=== PATIENT | female | born 1980 | race Caucasian/White ===

== ENCOUNTER → 2020-04-21 | Outpatient (CLI) | payer OTHER | LOC: M WHC 11:01 | PROVIDERS: ATTEND Obstetrics & Gynecology | DX: Z34.92 Encounter for supervision of normal pregnancy, unspecified, second trimester (principal); Z3A.20 20 weeks gestation of pregnancy; Z53.9 Procedure and treatment not carried out, unspecified reason ==

== ENCOUNTER → 2020-04-21 | Outpatient (CLI) | payer OTHER | LOC: M PLALAB 11:57 | PROVIDERS: ATTEND Obstetrics & Gynecology | DX: O09.512 Supervision of elderly primigravida, second trimester (principal); Z3A.00 Weeks of gestation of pregnancy not specified ==

== ENCOUNTER → 2020-04-22 | Outpatient (CLI) | payer OTHER ==
--- NOTE | 2020-04-22 18:48 | REP ---
INDICATION: PREG, ANATOMY COMPARISON: None. TECHNIQUE: Transabdominal obstetrical ultrasound with color Doppler evaluation. FINDINGS: Examination demonstrates a single live intrauterine in transverse presentation. motion is identified by technologist. Placenta is noted anterior and grade 0 without evidence for placenta previa or abruption. Amniotic fluid volume is normal. Cervix measures 4.0 cm in length and appears closed. Hypoechoic areas within the placenta likely represent small venous lakes. Gestational age by LMP 21 weeks 0 days with JOSE 09/02/2020. Gestational age by current measurements 20 weeks 6 days with JOSE 09/03/2020. FHR equals 147 beats per minute. Estimated weight 378 grams (35thpercentile). Anatomical assessment demonstrates normal structures including cranium, choroid plexus, cavum, cerebellum/posterior fossa, facial features, lungs, diaphragm, stomach, cord insertion/three-vessel cord, kidneys/bladder, spine, and extremities. IMPRESSION: 1. Single live intrauterine in transverse lie demonstrating appropriate estimated weight and growth. 2. Limited evaluation of the heart/ventricular outflow tracts may warrant re-evaluation and follow-up. 3. Presumed small placental venous lakes. <Electronically signed by Tito Antunez > 04/22/20 [id number]
== END ==
LOC: M RAD 10:05
PROVIDERS: ATTEND Obstetrics & Gynecology
DX: Z36.9 Encounter for antenatal screening, unspecified (principal); Z3A.20 20 weeks gestation of pregnancy

== ENCOUNTER → 2020-06-29 | Outpatient (REF) | payer OTHER | LOC: M PLALAB 08:54 | PROVIDERS: ATTEND Obstetrics & Gynecology | DX: Z3A.31 31 weeks gestation of pregnancy (principal); Z53.9 Procedure and treatment not carried out, unspecified reason ==

== ENCOUNTER → 2020-07-14 | Outpatient (REF) | payer OTHER ==
[~2020-07-14] MED LIST: MACR100C43 PO; PREN1CHW6 PO; ZOLO50TA PO
[2020-07-14 11:57] LABS: HEMATOCRIT 34.7 % (36.0-47.0); HEMOGLOBIN 11.2 g/dl (12.0-15.5); MEAN CORPUSCULAR HEMOGLOBIN 31.2 pg (27.0-33.0); MEAN CORPUSCULAR HGB CONC 32.3 g/dl (32.0-36.5); MEAN CORPUSCULAR VOLUME 96.7 fl (80.0-96.0); PLATELET COUNT, AUTOMATED 172 10^3/uL (150-450); RED BLOOD COUNT 3.59 10^6/uL (4.00-5.40); WHITE BLOOD COUNT 10.4 10^3/uL (4.0-10.0)
[2020-07-14 12:12] LABS: HEMOGLOBIN A1c 5.4 %
[2020-07-14 12:25] LABS: FREE T4 0.8 NG/DL (0.76-1.46); THYROID STIMULATING HORMONE 1.26 uIU/ML (0.358-3.740)
[2020-07-14 15:29] LABS: CHLAMYDIA DNA AMPLIFICATION NEGATIVE (NEGATIVE); GC DNA AMPLIFICATION NEGATIVE (NEGATIVE)
[2020-07-16 09:12] LABS: HIV 1&2 SCREEN CENTAUR NEGATIVE (NEGATIVE)
== END ==
LOC: M PLALAB 09:38
PROVIDERS: ATTEND Advanced Practice Midwife
DX: O09.523 Supervision of elderly multigravida, third trimester (principal); O34.211 Maternal care for low transverse scar from previous cesarean delivery; O24.419 Gestational diabetes mellitus in pregnancy, unspecified control; O99.343 Other mental disorders complicating pregnancy, third trimester; F32.9 Major depressive disorder, single episode, unspecified; Z3A.32 32 weeks gestation of pregnancy; Z79.899 Other long term (current) drug therapy

== ENCOUNTER → 2020-07-14 | Outpatient (CLI) | payer OTHER ==
--- NOTE | 2020-07-14 10:55 | REP ---
INDICATION: F/U ANATOMY COMPARISON: 04/22/2020 TECHNIQUE: Transabdominal obstetrical ultrasound with color Doppler evaluation. FINDINGS: Examination demonstrates a single live intrauterine in cephalic presentation. motion is identified by technologist. Placenta is noted anterior and grade 2 without evidence for placenta previa or abruption. Amniotic fluid volume is increased suggesting polyhydramnios. Cervix measures 4.8 cm in length and appears closed.. Gestational age by LMP and 1st U/S 32 weeks 6 days with JOSE 09/02/2020. Gestational age by current measurements 32 weeks 3 days with JOSE 09/05/2020. FHR equals 136 beats per minute. APRIL: 25.2 cm Umbilical artery SD ratio: 2.80 (1.80-3.78) Estimated weight 1949 grams (24thpercentile). Anatomical assessment demonstrates normal structures including lungs, four-chamber heart/ventricular outflow tracts. IMPRESSION: 1. Single live intrauterine in cephalic presentation demonstrating appropriate interval growth. 2. Polyhydramnios. 3. In conjunction with prior examination anatomical assessment is complete and normal. <Electronically signed by Tito Antunez > 07/14/20 [id number]
== END ==
LOC: M WHC 07:29
PROVIDERS: ATTEND Obstetrics & Gynecology
DX: Z36.89 Encounter for other specified antenatal screening (principal); Z3A.31 31 weeks gestation of pregnancy
CPT/HCPCS: 59025; 76816; 76820; 90471; 90715; G0463

== ENCOUNTER → 2020-08-04 | Outpatient (REF) | payer OTHER | LOC: M PLALAB 08:25 | PROVIDERS: ATTEND Obstetrics & Gynecology | DX: O99.343 Other mental disorders complicating pregnancy, third trimester (principal); F32.9 Major depressive disorder, single episode, unspecified; O34.211 Maternal care for low transverse scar from previous cesarean delivery; O09.523 Supervision of elderly multigravida, third trimester; Z3A.35 35 weeks gestation of pregnancy; Z79.899 Other long term (current) drug therapy | CPT/HCPCS: 59025; 87081; 87088; 87186; G0463 ==

== ENCOUNTER → 2020-08-04 | Outpatient (CLI) | payer OTHER ==
--- NOTE | 2020-08-04 10:20 | REP ---
INDICATION: GESTATIONAL DIABETES,GROWTH COMPARISON: 07/14/2020 TECHNIQUE: Transabdominal obstetrical ultrasound with color Doppler evaluation. FINDINGS: Examination demonstrates a single live intrauterine in cephalic presentation. motion is identified by technologist. Placenta is noted anterior and grade 2 without evidence for placenta previa or abruption. Amniotic fluid volume is upper normal raising the possibility of polyhydramnios. Cervix measures 3.2 cm in length and appears closed.. Gestational age by LMP and 1st U/S 35 weeks 6 days with JOSE 09/02/2020. Gestational age by current measurements 35 weeks 2 days with JOSE 09/06/2020. FHR equals 170 beats per minute. BPD: 9.0 cm at 36 weeks 2 days HC: 31.6 cm at 35 weeks 3 days AC: 31.7 cm at 35 weeks 5 days FL: 6.5 cm at 33 weeks 5 days HL: 6.1 cm at 35 weeks 2 days HC/AC: 1.00 Estimated weight 2615 grams (31stpercentile). APRIL: 24.3 cm (7.7-24.9) IMPRESSION: Single live intrauterine demonstrating appropriate interval growth. Amniotic fluid volume is borderline polyhydramnios. <Electronically signed by Tito Antunez > 08/04/20 [id number]
== END ==
LOC: M WHC 09:31
PROVIDERS: ATTEND Advanced Practice Midwife
DX: O24.419 Gestational diabetes mellitus in pregnancy, unspecified control (principal)

== ENCOUNTER → 2020-08-17 | Outpatient (CLI) | payer OTHER ==
[~2020-08-17] MED LIST changes: +COLA100C5 PO; +IBUP80TA PO; +PERC5TAB12 PO
--- NOTE | 2020-08-17 13:54 | REP ---
INDICATION: DECREASED MOVEMENT COMPARISON: 08/05/2019 TECHNIQUE: Transabdominal obstetrical ultrasound with color Doppler evaluation. FINDINGS: Examination demonstrates a single live intrauterine in cephalic presentation. motion is identified by technologist. Placenta is noted anterior and grade 1 without evidence for placenta previa or abruption. Amniotic fluid volume is normal. Nuchal cord noted. APRIL: 11.6 cm (7.4-24.1) Biophysical profile score: 8/8 Umbilical artery SD ratio: 2.02 (1.56-3.38) IMPRESSION: Single live advanced gestation in cephalic presentation. Biophysical profile score and amniotic fluid volume are normal. Evidence for nuchal cord. <Electronically signed by Tito Antunez > 08/17/20 [id number]
== END ==
LOC: M RAD 13:09
PROVIDERS: ATTEND Obstetrics & Gynecology
DX: O36.8123 Decreased fetal movements, second trimester, fetus 3 (principal); O09.523 Supervision of elderly multigravida, third trimester
CPT/HCPCS: 59025; 76815; 76819; 76820; G0463

== ENCOUNTER → 2020-08-20 | Outpatient (CLI) | payer OTHER ==
[~2020-08-20] MED LIST changes: -COLA100C5 PO; -IBUP80TA PO; -PERC5TAB12 PO
--- NOTE | 2020-08-20 14:20 | REP ---
INDICATION: GESTATIONAL DIABETES,GROWTH COMPARISON: 08/04/2020 TECHNIQUE: Transabdominal obstetrical ultrasound with color Doppler evaluation. FINDINGS: Examination demonstrates a single live intrauterine in cephalic presentation. motion is identified by technologist. Placenta is noted anterior and grade 2 without evidence for placenta previa or abruption. Amniotic fluid volume is normal. Gestational age by LMP and 1st U/S 30 weeks 1 day with JOSE 09/02/2020. Gestational age by current measurements 37 weeks 4 days with JOSE 09/06/2020. FHR equals 144 beats per minute. BPD: 9.3 cm at 37 weeks 4 days HC: 33.4 cm at 38 weeks 1 day AC: 34.7 cm at 30 weeks 4 days FL: 7.1 cm at 36 weeks 3 days HL: 6.5 cm at 37 weeks 3 days HC/AC: 0.96 Estimated weight 3344 grams (58thpercentile). APRIL: 13.6 cm Umbilical artery SD ratio: 2.61 (1.55-3.35) IMPRESSION: Single live advanced gestation in cephalic presentation demonstrating appropriate estimated weight/growth. <Electronically signed by Tito Antunez > 08/20/20 [id number]
== END ==
LOC: M WHC 13:23
PROVIDERS: ATTEND Advanced Practice Midwife
DX: O24.419 Gestational diabetes mellitus in pregnancy, unspecified control (principal)

== ENCOUNTER → 2020-08-22 | Outpatient (CLI) | payer BC, OTHER ==
[~2020-08-22] MED LIST changes: +COLA100C5 PO; +IBUP80TA PO; +PERC5TAB12 PO
== END ==
LOC: M LABSMTC 08:05
PROVIDERS: ATTEND Anesthesiology
DX: Z20.828 Contact with and (suspected) exposure to other viral communicable diseases (principal); Z11.59 Encounter for screening for other viral diseases

== ENCOUNTER 2020-08-27 06:58 | Inpatient (IN) | payer OTHER ==
[~2020-08-27] VITALS: Ht 167.6 cm; Wt 104.0 kg
[2020-08-27] VITALS (8 sets, daily range): BP systolic 107–127; BP diastolic 60–78
[~2020-08-27 06:58] MED LIST changes: -COLA100C5 PO; -IBUP80TA PO; -PERC5TAB12 PO
[2020-08-27] MEDS ORDERED: LACTATED RINGER'S 1000 ML IV STA (07:39)
[2020-08-27] MEDS ORDERED: FLUID PLACE HOLDER IV ONE (07:40)
[2020-08-27] MEDS ORDERED: LR 1,000 ML IV SCH ×2 (07:40→12:35)
[2020-08-27] MEDS ORDERED: GENTAMICIN IV ONE (07:40)
[2020-08-27] MEDS ORDERED: GENTAMICIN 160 MG in D5W 50 ML IV ONE (08:15)
[2020-08-27] MEDS ORDERED: BICITRA 30ML SOLN UDC PO ONE (08:30)
[2020-08-27] MEDS ORDERED: CLINDAMYCIN 900 MG in IV 1 EA IV ONE (08:30)
[2020-08-27 08:48] LABS: HEMATOCRIT 35.1 % (36.0-47.0); HEMOGLOBIN 11.8 g/dl (12.0-15.5); MEAN CORPUSCULAR HEMOGLOBIN 31.9 pg (27.0-33.0); MEAN CORPUSCULAR HGB CONC 33.6 g/dl (32.0-36.5); MEAN CORPUSCULAR VOLUME 94.9 fl (80.0-96.0); PLATELET COUNT, AUTOMATED 172 10^3/uL (150-450); WHITE BLOOD COUNT 8.5 10^3/uL (4.0-10.0)
[2020-08-27] MEDS ORDERED: MORPHINE PRES-FREE INJ 10 MG/10 ML VIAL (J2274) As Ordered ONE (09:42)
[2020-08-27] MEDS ORDERED: ONDANSETRON 4MG/2ML VIAL As Ordered ONE (09:46)
[2020-08-27] MEDS ORDERED: dexameTHASONE 4 MG/ML 1ML VIAL (J1100 PER 1MG) As Ordered ONE (09:46)
[2020-08-27] MEDS ORDERED: KETOROLAC 60MG 2ML VIAL As Ordered ONE (09:47)
[2020-08-27] MEDS ORDERED: PERC5TAB12 PO (09:54)
[2020-08-27] MEDS ORDERED: IBUP80TA PO (09:54)
[2020-08-27] MEDS ORDERED: COLA100C5 PO (09:54)
[2020-08-27] MEDS ORDERED: ONDANSETRON 4MG/2ML VIAL IV PRN ×3 (10:21→12:35)
[2020-08-27] MEDS ORDERED: METOCLOPRAMIDE INJ 10MG/2ML VIAL (J2765 PER 1) IV PRN ×2 (10:21→12:35)
[2020-08-27] MEDS ORDERED: NALOXONE INJ 0.4MG/1ML VIAL (J2310 PER 1MG) IV PRN ×2 (10:21)
[2020-08-27] MEDS ORDERED: NALBUPHINE HCL 10 MG/ML AMP (J2300) IV PRN (10:21)
[2020-08-27] MEDS ORDERED: PHENYLephrine 500MCG 5ML (100MCG/ML) SYRINGE As Ordered ONE (10:43)
[2020-08-27] MEDS ORDERED: fentaNYL 100 MCG/2 ML INJECTION (J3010) As Ordered ONE (11:29)
[2020-08-27] MEDS ORDERED: OXYTOCIN 30 UNITS IN 0.9% NaCl 500ML IV BAG (J2590) As Ordered ONE ×2 (11:43→12:13)
[2020-08-27] MEDS ORDERED: MEASLES,MUMPS,RUBELLA VACCINE INJ (MMR-II) (90707) SC SCH (12:10)
[2020-08-27] MEDS ORDERED: RHOGAM 300 MCG (1500 IU) INJ (J2790) IM SCH (12:10)
[2020-08-27] MEDS ORDERED: OXYTOCIN DRIP 30 UNITS in IV 1 EA IV SCH (12:10)
[2020-08-27] MEDS ORDERED: PERCOCET 5MG/325MG TAB PO PRN ×2 (12:10→12:35)
[2020-08-27] MEDS ORDERED: SIMETHICONE 80MG CHEW TAB PO PRN (12:10)
[2020-08-27] MEDS ORDERED: METHYLERGONOVINE MALEATE 0.2 MG/ML VIAL (J2210) IM ONE (12:15)
[2020-08-27] MEDS ORDERED: fentaNYL 100 MCG/2 ML INJECTION (J3010) IV PRN (12:35)
[2020-08-27] MEDS ORDERED: diphenhydrAMINE 50MG/ML VIAL (J1200) As Ordered ONE (13:01)
[2020-08-27] MEDS: diphenhydrAMINE 50MG/ML VIAL (J1200) IV PRN ×2 (13:03→17:27)
--- NOTE | 2020-08-27 13:30 | RO ---
OPERATIVE NOTE DATE OF OPERATION: 08/27/2020 CLINICAL SERVICE: Obstetrics. PREOPERATIVE DIAGNOSIS: Lynn intrauterine at 39 weeks 1 day with history of prior section and satisfied parity. POSTOPERATIVE DIAGNOSIS: Lynn intrauterine at 39 weeks 1 day with history of prior section and satisfied parity status post delivery and bilateral tubal ligation. OPERATION PERFORMED: Repeat low transverse section and [place] bilateral tubal ligation. STAFF SURGEON: Bety Raygoza MD. [employer]NER: Kayla Chandler CNM. ANESTHESIA: MATERIAL FORWARDED TO THE LAB FOR EXAMINATION: Portions of bilateral fallopian tubes. INDICATION FOR OPERATION: Maranda is a 40-year-old G9, now P8-1-0-9 at 39 weeks 1 day having a history of prior section and desiring a repeat, also having satisfied pariety desiring sterilization. Her history is otherwise notable for AMA, depression stable on Zoloft, prior A1 GDM in previous , and in this she did not complete glucose testing though it was discussed on multiple occasions. DESCRIPTION OF FINDINGS: Female infant in OT presentation, Apgars 8 and 9, weight 3370 grams or 7 pounds 1 ounce. Normal appearing uterus, fallopian tubes, and ovaries. There was some adhesion of the omentum to the anterior peritoneal wall which was taken down. INFECTION CLASSIFICATION: II. ESTIMATED BLOOD LOSS: 500 mL. URINE OUTPUT: 50 mL of yellow clear urine. IV FLUIDS: 1400 mL Lactated Ringers. DESCRIPTION OF OPERATION: Patient was taken to the operating room. She had reactive NST prior. Spinal anesthesia was administered. Limon catheter and bilateral sequential compression devices were placed. She was prepped and draped in normal sterile fashion in dorsal supine position with a left lateral tilt. Time out was performed to confirm patient name, date of , procedure, and indication. The team was in agreement. Spinal anesthesia was found to be adequate using Allis clamp. She had received both gentamicin and clindamycin IV prior to start of the procedure given that she had an allergy to amoxicillin resulting in hives. A Pfannenstiel skin incision was made with a scalpel through the prior incision line and carried through to the underlying layer of fascia. Fascia was incised in the midline, and the incision was extended laterally with Carlisle scissors. Superior and inferior aspects of the fascial incision were grasped with Ar clamps, elevated, and the underlying rectus muscles were dissected off bluntly and sharply. Peritoneum was entered digitally, and the rectus muscles were in the midline. Peritoneal incision was extended superiorly and inferiorly with good visualization of the bladder. Bladder was adhesed somewhat high up on the uterus. Mobius retracted was inserted for retraction and good visualization of the uterus. Vesicouterine peritoneum was identified, grasped with pickups, and entered sharply with Metzenbaum scissors. Incision was extended laterally, and bladder flap was created digitally. The lower uterine segment was scored in a transverse fashion with a scalpel. Uterus was entered bluntly, and the incision was extended with traction with clear amniotic fluid noted. The infant's head was elevated to the level of the incision. Fundal pressure was applied. Head was delivered atraumatically in the OT position. Anterior shoulder, posterior shoulder, and corpus were delivered without difficulty. Nose and mouth were suctioned with bulb suction. Cord was clamped x2 and cut. Infant was handed off to the awaiting team. Cord blood was obtained for maternal blood type. Placenta was removed with traction on the cord and uterine massage, and the uterus was left in situ and cleared of all clot and debris. Uterine incision was repaired with 0 Vicryl suture in a running locking fashion. A second layer of 0 Monocryl suture was used to close the hysterotomy incision in an imbricating fashion. Uterine incision was inspected, and hemostasis was noted. At that time, right and left fallopian tubes were visualized without abnormalities. [place] tubal ligation was performed on the left followed by the right fallopian tube using 0 plain gut suture. Transected portions of the fallopian tubes were sent to pathology and there was complete hemostasis noted along the pedicle line. Uterus was reinspected, and there was no bleeding. Pankaj was applied over the incision line. Gutters were cleared of all clots. The Mobius retractor was removed. Peritoneum was closed using 3-0 Vicryl suture in a running fashion. Rectus muscles were reapproximated with [id number] stitches using 0 Vicryl suture. Fascia was reapproximated with 0 Vicryl suture in a running fashion. Subcutaneous tissue was copiously irrigated. Viridiana's fascia was reapproximated with 3-0 Vicryl suture in a running fashion in two layers, and then the skin was repaired using a running subcuticular stitch using 4-0 Monocryl suture. Incision was cleaned using a wet lap and dried with a dry lap. Steri-Strips were applied overlying as well as an Optifoam dressing. Vagina was cleared of all blood clot without active bleeding noted. Fundus was firm at U -1 cm. All counts were correct x2. Patient was given 0.2 mg of Methergine for prophylaxis against future bleeding given that she is a grand multiparity, and she will receive a further 30 units of IV Pitocin in the PACU. Procedure was without complications. She tolerated the procedure well. She was taken to the recovery room on Labor and Delivery in stable condition.
[2020-08-27] MEDS: KETOROLAC 30 MG/ML 1ML VIAL IV SCH ×2 (17:57→23:57)
[2020-08-27] MEDS: LR 1,000 ML IV SCH ×2 (20:10→23:32)
[2020-08-27] MEDS: DOCUSATE SODIUM 100MG CAPSULE PO SCH (21:27)
[2020-08-28 02:00] VITALS: BP 108/62
[2020-08-28] MEDS: KETOROLAC 30 MG/ML 1ML VIAL IV SCH (05:56)
[2020-08-28 06:00] VITALS: BP 103/57
[2020-08-28 07:39] LABS: HEMATOCRIT 28.4 % (36.0-47.0); MEAN CORPUSCULAR HGB CONC 33.5 g/dl (32.0-36.5); MEAN CORPUSCULAR VOLUME 95.6 fl (80.0-96.0); PLATELET COUNT, AUTOMATED 172 10^3/uL (150-450); RED BLOOD COUNT 2.97 10^6/uL (4.00-5.40); WHITE BLOOD COUNT 12.5 10^3/uL (4.0-10.0)
--- NOTE | 2020-08-28 07:40 | IPNPDOC ---
Text Note Date of Service The patient was seen on 08/28/20. NOTE PO #1 Feels well. Adequate pain management. Tolerating diet. Voiding. VSS, afebrile, normotensive Fundus firm, NT Dressing intact Lochia rubra light without odor PO #1 Routine care. Anticipate D/C in am VS,Fishbone, I+O VS, Fishbone, I+O Laboratory Tests 08/27/20 08:29 Vital Signs Date Time Temp Pulse Resp B/P (MAP) Pulse Ox O2 Delivery O2 Flow Rate FiO2 08/28/20 06:00 97.0 75 17 103/57 (72) 99 Room Air I&O- Last 24 Hours up to 6 AM 08/28/20 06:00 Intake Total 2880 ml Output Total 1870 ml Balance 1010 ml Ruth Benjamin CNM Aug 28, 2020 07:40
[2020-08-28 07:48] LABS: HEMOGLOBIN 9.5 g/dl (12.0-15.5)
[2020-08-28] MEDS: PRENATAL VITAMINS CHEWABLE TABLET PO SCH (08:55)
[2020-08-28] MEDS: DOCUSATE SODIUM 100MG CAPSULE PO SCH ×2 (08:55→21:18)
[2020-08-28] MEDS: PERCOCET 5MG/325MG TAB PO PRN ×2 (09:04→18:29)
[2020-08-28 10:00] VITALS: BP 102/56
[2020-08-28] MEDS: IBUPROFEN 800 MG TAB PO SCH ×2 (13:45→22:07)
[2020-08-28 14:04] VITALS: BP 130/80
[2020-08-28 18:00] VITALS: BP 118/69
[2020-08-28 22:00] VITALS: BP 121/80
[2020-08-29] MEDS: PERCOCET 5MG/325MG TAB PO PRN ×2 (00:38→09:54)
[2020-08-29 02:00] VITALS: BP 90/50
[2020-08-29] MEDS: IBUPROFEN 800 MG TAB PO SCH ×2 (05:36→13:28)
[2020-08-29 06:00] VITALS: BP 117/69
[2020-08-29] MEDS: PRENATAL VITAMINS CHEWABLE TABLET PO SCH (09:50)
[2020-08-29] MEDS: DOCUSATE SODIUM 100MG CAPSULE PO SCH (09:50)
--- NOTE | 2020-08-29 12:59 | DS.PDOC ---
Discharge Summary General Date of Admission Aug 27, 2020 at 06:58 Date of Discharge 08/29/2020 Attending Physician: Bety Raygoza MD Discharge Summary PROCEDURES PERFORMED DURING STAY: 1. Spinal anesthesia 2. Repeat lower transverse section and [place] bilateral tubal ligation. ADMITTING DIAGNOSES: 1. Intrauterine at 39 weeks with history section and satisfy parity. DISCHARGE DIAGNOSES: 1. Intrauterine at 39 weeks with history of section and satisfy parity status post repeat section and bilateral tubal ligation. COMPLICATIONS/CHIEF COMPLAINT: Previous Satisfied Parity. HISTORY OF PRESENT ILLNESS: Mrs. Barnard presented for scheduled section with tuba ligation. She underwent a repeat section, productive of live born female infant a Apgars were 8 and 9 weight was 3370 g or 7 lbs. 1 oz. Estimated blood loss 500ml. Patient did well postoperatively by postoperative day #2 had met all discharge criteria is as discharged home in stable condition DISCHARGE MEDICATIONS: Please see below. ALLERGIES: Please see below. PHYSICAL EXAMINATION ON DISCHARGE: VITAL SIGNS: Please see below. GENERAL: No distress HEENT: WNL ABDOMINAL EXAMINATION: Fundus firm. Dressing intact EXTREMITIES: Equal strength and motion SKIN: Intact NEUROLOGICAL EXAMINATION: Grossly intact PSYCHIATRIC EXAMINATION: Appropriate LABORATORY DATA: Please see below. PROGNOSIS: Good ACTIVITY: As tolerated. Pelvic rest. DIET: As tolerated DISCHARGE PLAN: Discharge today. Remove dressing day 5 DISPOSITION: Home DISCHARGE INSTRUCTIONS: 1. Pelvic rest. Continue vitamins. Medications as ordered. Call with fever, nausea, vomiting, chills, foul lochia, wound exudate or evidence infection. RTO early next week for blood pressure check. DISCHARGE CONDITION: Stable Vital Signs/I&Os Vital Signs Date Time Temp Pulse Resp B/P (MAP) Pulse Ox O2 Delivery O2 Flow Rate FiO2 08/29/20 09:54 16 Room Air 08/29/20 06:00 97.8 98 117/69 (85) 98 Discharge Medications Scheduled Docusate Sodium (Colace) 100 Mg Capsule, 1 CAP PO BID Ibuprofen (Ibuprofen) 800 Mg Tablet, 1 TAB PO TID for pain Vit37/Iron/Folic Acid (P[place]ata Chewable Tablet) 1 Each Tab.chew, 1 CHW PO DAILY, (Reported) Sertraline Hcl (Zoloft) 50 Mg Tablet, 50 MG PO QHS, (Reported) Scheduled PRN Oxycodone HCl/Acetaminophen (Percocet 5-325 mg Tablet) 1 Each Tablet, 1 TAB PO Q4-6HP PRN for PAIN Allergies Coded Allergies: Penicillins (Verified Allergy, Intermediate, hives, 08/13/20) adhesive (Verified Allergy, Intermediate, itching, redness, bumps, 08/13/20) kiwi (Verified Allergy, Intermediate, itchy tongue, 08/27/20) MAR DANIELSON MD. Aug 29, 2020 12:59
== END 2020-08-29 15:35 | disposition home or self-care (01) | DRG 785 ==
LOC: M LDI 06:58 → M OBS 13:40
PROVIDERS: ADMIT Obstetrics & Gynecology; ATTEND Obstetrics & Gynecology
PROC: 0UB70ZZ Excision of Bilateral Fallopian Tubes, Open Approach (ICD-10-PCS; 2020-08-27)
PROC: 10D00Z1 Extraction of Products of Conception, Low, Open Approach (ICD-10-PCS; principal; 2020-08-27 09:30)
DX: O34.211 Maternal care for low transverse scar from previous cesarean delivery (principal); Z37.0 Single live birth; Z3A.39 39 weeks gestation of pregnancy; Z30.2 Encounter for sterilization; O09.523 Supervision of elderly multigravida, third trimester; Z88.0 Allergy status to penicillin; Z91.018 Allergy to other foods

== ENCOUNTER → 2023-04-19 | Outpatient (CLI) | payer OTHER ==
[~2023-04-19] MED LIST changes: +COLA100C5 PO; +IBUP80TA PO; +PERC5TAB12 PO
== END ==
LOC: M WHC 12:56
PROVIDERS: ATTEND Nurse Practitioner Family
DX: Z12.31 Encounter for screening mammogram for malignant neoplasm of breast (principal)

== ENCOUNTER → 2023-08-31 | Outpatient (REF) | payer OTHER ==
[2023-09-04 12:43] LABS: HPV APTIMA Not Detected (Not Detected)
== END ==
LOC: M SFHCWAGY 15:01
PROVIDERS: ATTEND Nurse Practitioner Family
DX: Z12.4 Encounter for screening for malignant neoplasm of cervix (principal); Z77.9 Other contact with and (suspected) exposures hazardous to health
CPT/HCPCS: 87624; G0123

== ENCOUNTER → 2024-07-11 | Outpatient (REF) | LOC: M PLAIMG 11:13 | PROVIDERS: ATTEND Internal Medicine | DX: R06.02 Shortness of breath (principal) ==

== ENCOUNTER 2024-09-26 11:40 | Emergency (ER) | payer OTHER ==
[~2024-09-26] VITALS: Ht 167.6 cm; Wt 83.0 kg
[2024-09-26] MEDS ORDERED: FERR325T82 PO (11:58)
[2024-09-26] MEDS ORDERED: FLUO40CA PO (11:58)
[2024-09-26] MEDS: ACETAMINOPHEN 500 MG TAB PO ONE (12:23)
[2024-09-26 12:37] LABS: KETONE, URINE AUTO RFX TRACE mg/dL (NEGATIVE); MUCUS, URINE RFX SMALL (NEGATIVE); RBC, URINE AUTO RFX 22 /HPF (0-3); SQUAM EPITHELIAL CELL UR AURFX 12 /HPF (0-6)
[2024-09-26 12:40] LABS: LEUKOCYTE ESTERASE UR AUTO RFX 3+ (NEGATIVE); NITRITE, URINE AUTO RFX POSITIVE (NEGATIVE); WBC, URINE AUTO RFX TNTC /HPF (0-3)
[2024-09-26] MEDS ORDERED: NITR100C3 PO (13:20)
[2024-09-26 13:23] VITALS: BP 102/58; TEMP 98.3; O2SAT 99
[2024-09-26] MEDS: NITROFURANTOIN 100 MG CAP PO ONE (13:23)
== END 2024-09-26 13:34 | disposition home or self-care (01) ==
LOC: M ED 11:40
DX: N39.0 Urinary tract infection, site not specified (principal); S09.90XA Unspecified injury of head, initial encounter; W22.8XXA Striking against or struck by other objects, initial encounter; Y93.89 Activity, other specified; Y92.008 Other place in unspecified non-institutional (private) residence as the place of occurrence of the external cause; Y99.9 Unspecified external cause status; J45.909 Unspecified asthma, uncomplicated; Z88.0 Allergy status to penicillin; Z91.048 Other nonmedicinal substance allergy status